=== PATIENT | female | born 1950 | race Caucasian/White ===

== ENCOUNTER 2016-06-13 22:34 | Inpatient (IN) | payer OTHER ==
[~2016-06-13] VITALS: Ht 162.6 cm; Wt 48.0 kg
[2016-06-13 23:35] LABS: INFLUENZA B NEGATIVE
[2016-06-14 00:08] LABS: BASO % 0.5 % (0.0-2.0); GRAN % 88.6 % (42.2-75.2); HEMATOCRIT 45.1 % (37.0-47.0); LYMPH # 0.3 (1.2-3.4); LYMPH % 3.2 % (20.0-51.0); MEAN CELL VOLUME 88 fl (80.0-100.0); MEAN CORPUSCULAR HEMOGLOBIN 29 pg (27.0-31.0); MEAN CORPUSCULAR HGB CONC 33 g/dl (33.0-37.0); MEAN PLATELET VOLUME 11.8 fl (7.4-10.4); MONO # 0.6 (0.1-0.6); MONO % 7.3 % (1.7-9.3); PLATELET COUNT 228 K/mm3 (130-400); RED BLOOD COUNT 5.12 M/mm3 (4.10-5.30); REDCELL DISTRIBUTION WIDTH-CV 13.7 % (11.5-14.5); WHITE BLOOD COUNT 7.9 K/mm3 (4.8-10.8)
[2016-06-14] MEDS ORDERED: ZETIA 10MG TAB10 MG PO (00:19)
[2016-06-14] MEDS ORDERED: MACROBID 1100 MG/CAP PO (00:20)
[2016-06-14] MEDS ORDERED: NUEDEXTA 20 MG-1 CAP PO (00:20)
[2016-06-14] MEDS ORDERED: B-12 500 MCG (00:20)
[2016-06-14] MEDS ORDERED: LIORESAL 1010 MG/TAB PO ×2 (00:21→00:23)
[2016-06-14] MEDS ORDERED: ZOLOFT 25MG25 MG PO (00:21)
[2016-06-14] MEDS ORDERED: ULTRAM 50MG TAB50 MG PO (00:22)
[2016-06-14] MEDS ORDERED: ULTRAM ER100 MG PO (00:22)
[2016-06-14 00:23] LABS: ALBUMIN 4.3 gm/dL (3.5-5.0); BILIRUBIN,TOTAL 0.8 mg/dL (0.0-1.0); CALCIUM 9.2 mg/dL (8.4-10.2); CREATININE, serum 0.24 mg/dL (0.52-1.25); POTASSIUM 3.6 mmol/L (3.4-5.0); TOTAL PROTEIN 7.3 gm/dL (6.4-8.2)
[2016-06-14 00:27] LABS: PH 8 (5-8); SQUAMOUS EPITHELIAL None Seen /hpf; URINE APPEARANCE Cloudy; URINE BACTERIA Rare /hpf; URINE BILIRUBIN Negative (NEGATIVE); URINE BLOOD Negative (NEGATIVE); URINE COLOR Yellow; URINE GLUCOSE Negative (NEGATIVE); URINE KETONE 1+ (NEGATIVE); URINE UROBILINOGEN Negative (NEGATIVE)
[2016-06-14] MEDS ORDERED: ATROPINE 2 ML2 ML OU (01:09)
[2016-06-14 03:18] VITALS: BP 182/94; PULSE 96; TEMP 97.9
[2016-06-14 08:45] LABS: BASO % 0.3 % (0.0-2.0); HEMATOCRIT 46.2 % (37.0-47.0); HEMOGLOBIN 15.3 g/dl (12.5-16.0); LYMPH # 0.3 (1.2-3.4); LYMPH % 2.6 % (20.0-51.0); MEAN CELL VOLUME 88 fl (80.0-100.0); MEAN CORPUSCULAR HEMOGLOBIN 29 pg (27.0-31.0); MEAN CORPUSCULAR HGB CONC 33 g/dl (33.0-37.0); MEAN PLATELET VOLUME 12.6 fl (7.4-10.4); MONO # 0.9 (0.1-0.6); MONO % 8.8 % (1.7-9.3); PLATELET COUNT 242 K/mm3 (130-400); RED BLOOD COUNT 5.25 M/mm3 (4.10-5.30); REDCELL DISTRIBUTION WIDTH-CV 13.8 % (11.5-14.5); WHITE BLOOD COUNT 10.3 K/mm3 (4.8-10.8)
[2016-06-14 08:55] VITALS: BP 168/97; PULSE 119; TEMP 98.5
[2016-06-14 09:01] LABS: CALCIUM 8.8 mg/dL (8.4-10.2); CREATININE, serum 0.24 mg/dL (0.52-1.25)
[2016-06-14 09:24] LABS: POTASSIUM 2.9 mmol/L (3.4-5.0)
[2016-06-14 12:01] LABS: MAGNESIUM 1.6 mg/dL (1.6-2.3); PHOSPHOROUS 2.8 mg/dL (2.5-4.5)
[2016-06-14 12:32] VITALS: BP 166/88; PULSE 105; TEMP 98.6
[2016-06-14 16:21] VITALS: BP 168/85; PULSE 102; TEMP 98.7
[2016-06-14 19:22] VITALS: BP 140/96; PULSE 104; TEMP 97.7
[2016-06-14 23:13] VITALS: BP 149/85; PULSE 98; TEMP 98.5
[2016-06-15] VITALS (8 sets, daily range): BP systolic 11–202; BP diastolic 68–112; PULSE 88–129; TEMP 97.5–101.5
[2016-06-15 07:43] LABS: HEMATOCRIT 39.1 % (37.0-47.0); MEAN CELL VOLUME 89 fl (80.0-100.0); MEAN CORPUSCULAR HEMOGLOBIN 30 pg (27.0-31.0); MEAN CORPUSCULAR HGB CONC 34 g/dl (33.0-37.0); MEAN PLATELET VOLUME 12.8 fl (7.4-10.4); PLATELET COUNT 211 K/mm3 (130-400); REDCELL DISTRIBUTION WIDTH-CV 14.1 % (11.5-14.5); WHITE BLOOD COUNT 14.1 K/mm3 (4.8-10.8)
[2016-06-15 08:06] LABS: ADD PATHOLOGY DIFF REVIEW NO; HEMOGLOBIN 13.1 g/dl (12.5-16.0)
[2016-06-15 08:30] LABS: CALCIUM 8.8 mg/dL (8.4-10.2); CREATININE, serum 0.26 mg/dL (0.52-1.25); POTASSIUM 3.8 mmol/L (3.4-5.0)
[2016-06-15 08:34] LABS: BAND 28 % (0-10); NEUTROPHILS 65 % (42.0-75.2); PLATELET ESTIMATE NORMAL (NORMAL); TOTAL CELLS COUNTED 100
[2016-06-15 16:57] LABS: ARTERIAL BLD GAS O2 SATURATION 96.3 % (92-100); ARTERIAL BLD GAS TCO2 CT 26.5; ARTERIAL BLOOD GAS BASE EXCESS 2.4 (-2-2); ARTERIAL BLOOD GAS HCO3 25.4 meq/L (22-26); ARTERIAL BLOOD GAS PHT 7.48 C (7.35-7.45); ARTERIAL BLOOD GAS PO2 80.1 mmHg (80-100); ARTERIAL BLOOD GAS PO2T 80.1 (80-100); ARTERIAL BLOOD GAS pH 7.48 (7.35-7.45); ATS? YES; OXYHEMOGLOBIN 95.4 %
[2016-06-16] VITALS (12 sets, daily range): BP systolic 147–168; BP diastolic 85–95; PULSE 95–123; TEMP 97.8–99.2
[2016-06-16 07:34] LABS: BASO % 0.1 % (0.0-2.0); GRAN # 7.1 (1.4-6.5); GRAN % 81.7 % (42.2-75.2); HEMOGLOBIN 13.8 g/dl (12.5-16.0); LYMPH % 11.1 % (20.0-51.0); MEAN CELL VOLUME 89 fl (80.0-100.0); MEAN CORPUSCULAR HEMOGLOBIN 29 pg (27.0-31.0); MEAN CORPUSCULAR HGB CONC 33 g/dl (33.0-37.0); MEAN PLATELET VOLUME 12.6 fl (7.4-10.4); MONO # 0.6 (0.1-0.6); MONO % 6.8 % (1.7-9.3); PLATELET COUNT 214 K/mm3 (130-400); RED BLOOD COUNT 4.72 M/mm3 (4.10-5.30); REDCELL DISTRIBUTION WIDTH-CV 14.2 % (11.5-14.5); WHITE BLOOD COUNT 8.7 K/mm3 (4.8-10.8)
[2016-06-16 07:41] LABS: CALCIUM 8.9 mg/dL (8.4-10.2); CREATININE, serum 0.26 mg/dL (0.52-1.25); POTASSIUM 3.2 mmol/L (3.4-5.0)
[2016-06-17] VITALS (7 sets, daily range): BP systolic 139–175; BP diastolic 81–103; PULSE 82–111; TEMP 97.3–98.1
[2016-06-17 03:12] LABS: HEMATOCRIT 40.5 % (37.0-47.0); HEMOGLOBIN 13.5 g/dl (12.5-16.0); MEAN CELL VOLUME 88 fl (80.0-100.0); MEAN CORPUSCULAR HEMOGLOBIN 29 pg (27.0-31.0); MEAN CORPUSCULAR HGB CONC 33 g/dl (33.0-37.0); MEAN PLATELET VOLUME 11.7 fl (7.4-10.4); PLATELET COUNT 199 K/mm3 (130-400); RED BLOOD COUNT 4.61 M/mm3 (4.10-5.30); REDCELL DISTRIBUTION WIDTH-CV 14.1 % (11.5-14.5); WHITE BLOOD COUNT 6.3 K/mm3 (4.8-10.8)
[2016-06-17 03:26] LABS: CALCIUM 8.8 mg/dL (8.4-10.2); CREATININE, serum 0.29 mg/dL (0.52-1.25); POTASSIUM 4.1 mmol/L (3.4-5.0)
[2016-06-18 06:06] VITALS: BP 151/90; PULSE 86; TEMP 98.3
[2016-06-18 07:48] LABS: HEMATOCRIT 42.7 % (37.0-47.0); HEMOGLOBIN 13.9 g/dl (12.5-16.0); MEAN CELL VOLUME 89 fl (80.0-100.0); MEAN CORPUSCULAR HEMOGLOBIN 29 pg (27.0-31.0); MEAN CORPUSCULAR HGB CONC 33 g/dl (33.0-37.0); MEAN PLATELET VOLUME 11.9 fl (7.4-10.4); PLATELET COUNT 272 K/mm3 (130-400); WHITE BLOOD COUNT 8.4 K/mm3 (4.8-10.8)
[2016-06-18 08:07] LABS: CALCIUM 9.5 mg/dL (8.4-10.2); CREATININE, serum 0.28 mg/dL (0.52-1.25); POTASSIUM 3.8 mmol/L (3.4-5.0)
[2016-06-18 12:06] VITALS: BP 155/86; PULSE 92; TEMP 97.7
[2016-06-18] MEDS ORDERED: IPRATROPIUM BROM3 M1 IH (14:01)
[2016-06-18] MEDS ORDERED: XANAX .25M0.25 MG/TA PO (14:02)
[2016-06-18] MEDS ORDERED: NORVASC 5MG5 MG/TAB PO (14:02)
[2016-06-18] MEDS ORDERED: PULMICORT0.25 MG/2 IH (14:03)
[2016-06-18] MEDS ORDERED: MIRALAX PA17 GM/Dose PO (14:04)
[2016-06-18] MEDS ORDERED: TRANSDERM-0.5 MG/21 TD (14:04)
[2016-06-18] MEDS ORDERED: DULCOLAX S10 MG/SUPP RC (14:04)
[2016-06-18 14:21] VITALS: BP 155/86; PULSE 92; TEMP 97.7
== END 2016-06-18 15:51 | disposition hospice, inpatient (51) | DRG 853 ==
LOC: COL.ER 22:34 → MEDICAL 06-14 01:38
PROVIDERS: Emergency Medicine; Internal Medicine; Internal Medicine Pulmonary Disease
PROC: 0BC Respiratory System, Extirpation (ICD-10-PCS; 2016-06-16)
PROC: 0BJ Respiratory System, Inspection (ICD-10-PCS; principal; 2016-06-16 09:30)
DX: A41.9 Sepsis, unspecified organism (principal); J12.1 Respiratory syncytial virus pneumonia; J96.01 Acute respiratory failure with hypoxia; G12.21 Amyotrophic lateral sclerosis; Z51.5 Encounter for palliative care; Z66 Do not resuscitate; I10 Essential (primary) hypertension
CPT/HCPCS: 99223-AI; 99232-AI; 99233-AI; 99239; A4315; J0360; J0456; J0692; J0696; J1650; J1885; J2060; J2270; J2704; J3480; J7030; J7040; J7050